=== PATIENT | female | born 1980 | race Caucasian/White ===

== ENCOUNTER 2018-05-28 06:34 | Emergency (ER) | payer BC ==
[2018-05-28] MEDS ORDERED: ASPIRIN 81 MG TABLET, CHEWABLE PO ONE (06:59)
--- NOTE | 2018-05-28 07:01 | ER Document Report ---
ED General - General Mode of Arrival: Ambulatory Information source: Patient TRAVEL OUTSIDE OF THE [place] IN LAST 30 DAYS: No <SG LAMBERT - Last Filed: 05/28/18 09:59> <YA MARTI - Last Filed: 05/28/18 10:02> - General Chief Complaint: Chest Pain Stated Complaint: CHEST PAIN Time Seen by Provider: 05/28/18 06:51 Notes: 37-year-old female who presents to the emergency department today with complaints of a heart racing sensation with associated left-sided chest pain described as a "dull pain". Patient mentions that she is currently in the area because her vqurnt-yr-kns is very sick which has added stress to her life. Patient states when she woke up she took her heart rate which was 98, a few minutes later it was 101 and she began feeling hot so she stepped outside. Patient took it once more when coming back inside and it was 117 and she states she "began to panic" with associated lip tingling. Patient also mentions that she is is on phentermine for weight loss and is taking Advil Cold and Sinus which contains phenylephrine. (SG LAMBERT) Past Medical History - General Information source: Patient - Social History Smoking Status: Never Smoker Cigarette use (# per day): No Frequency of alcohol use: Rare Drug Abuse: None Lives with: Family Family History: Reviewed & Not Pertinent - Past Medical History Cardiac Medical History: Reports: Hx Hypertension Psychiatric Medical History: Reports: Hx Depression Surgical Hx: Negative <SG LAMBERT - Last Filed: 05/28/18 09:59> Review of Systems - Review of Systems Constitutional: No symptoms reported EENT: See HPI, Other - lips tingling Cardiovascular: See HPI, Chest pain, Heart racing Respiratory: No symptoms reported Gastrointestinal: No symptoms reported Genitourinary: No symptoms reported Female Genitourinary: No symptoms reported Musculoskeletal: No symptoms reported Skin: No symptoms reported Hematologic/Lymphatic: No symptoms reported Neurological/Psychological: See HPI, Anxiety -: Yes All other systems reviewed and negative <SG LAMBERT - Last Filed: 05/28/18 09:59> Physical Exam <SG LAMBERT - Last Filed: 05/28/18 09:59> <YA MARTI - Last Filed: 05/28/18 10:02> - Vital signs Vitals: Temp Pulse Resp BP Pulse Ox 98.6 F 100 18 134/89 H 100 05/28/18 06:38 05/28/18 06:38 05/28/18 06:38 05/28/18 06:38 05/28/18 06:38 - Notes Notes: PHYSICAL EXAM GENERAL: Alert, interacts well. No acute distress. HEAD: Normocephalic, atraumatic. EYES: Pupils equal, round, and reactive to light. Extraocular movements intact. Horizontal nystagmus which is baseline for her since . ENT: Oral mucosa moist, tongue midline. NECK: Full range of motion. Supple. Trachea midline. CHEST: Reproducible left sided tenderness with palpation extending from under the breast to the anterior axillary line. LUNGS: Clear to auscultation bilaterally, no wheezes, rales, or rhonchi. No respiratory distress. HEART: Regular rate and rhythm. No murmurs, gallops, or rubs. ABDOMEN: Soft, non-tender. Non-distended. Bowel sounds present in all 4 quadrants. No guarding, rigidity, or rebound. EXTREMITIES: Moves all 4 extremities spontaneously. No edema, radial and dorsalis pedis pulses 2/4 bilaterally. No cyanosis. NEUROLOGICAL: Alert and oriented x3. Normal speech. PSYCH: Mildly anxious. SKIN: Warm, dry, normal turgor. No rashes or lesions noted. (SG LAMBERT) Course - Laboratory Result Diagrams: 05/28/18 07:25 05/28/18 07:25 <SG LAMBERT - Last Filed: 05/28/18 09:59> - Laboratory Result Diagrams: 05/28/18 07:25 05/28/18 07:25 <YA MARTI - Last Filed: 05/28/18 10:02> - Re-evaluation Re-evalutation: 05/28/18 08:21 CBC unremarkable, CMP unremarkable, cardiac enzymes negative, chest x-ray shows no acute process, EKG is nonischemic. Patient is feeling much better, she is on phentermine for weight loss and recently started taking an oral decongestant combination medication including phenylephrine. She is also under a great deal of stress as her cpzbuy-uw-glf's in the hospital and according to the patient her uzghie-ub-pfl is dying right now. Patient is recommended not to take any other stimulant medications in combination with her phentermine. Patient is quite low risk for ACS or pulmonary embolism. Patient will be discharged to home. (YA MARTI) - Vital Signs Vital signs: Temp Pulse Resp BP Pulse Ox 98.6 F 100 14 115/72 100 05/28/18 06:38 05/28/18 06:38 05/28/18 09:01 05/28/18 09:00 05/28/18 09:01 - Laboratory Laboratory results interpreted by me: 05/28/18 07:25 RDW 14.1 H - EKG Interpretation by Me Additional EKG results interpreted by me: 05/28/18 08:21 EKG shows sinus rhythm at a rate of 93, left axis deviation, normal intervals, no ST segment elevations or depressions, there are T wave inversions in lead III and flattening in aVF and V3 per my interpretation. (YA MARTI) Discharge <SG LAMBERT - Last Filed: 05/28/18 09:59> <YA MARTI - Last Filed: 05/28/18 10:02> - Discharge Clinical Impression: Chest pain with low risk for cardiac etiology Condition: Stable Disposition: HOME, SELF-CARE Instructions: Chest Pain of Unclear Cause ([facility]) Scribe Attestation: 05/28/18 10:02 I personally performed the services described in the documentation, reviewed and edited the documentation which was dictated to the scribe in my presence, and it accurately records my words and actions. (YA MARTI) Scribe Documentation - Scribe Written by Wyatt:: Wyatt Ohara, 05/28/2018 [id number] acting as scribe for :: Lisha <SG LAMBERT - Last Filed: 05/28/18 09:59>
--- NOTE | 2018-05-28 07:32 | RADIOLOGY REPORT (SQ) ---
EXAM DESCRIPTION: XR CHEST 1 VIEW COMPLETED DATE/TME: 05/28/2018 06:59 CLINICAL HISTORY: 37 years, Female, left sided chest pain COMPARISON: None. NUMBER OF VIEWS: One TECHNIQUE: AP view of the chest LIMITATIONS: None. FINDINGS: The lungs are clear. The heart is normal in size. There is no pneumothorax or pleural effusion. There is no acute fracture IMPRESSION: No acute cardiopulmonary abnormality 2010 [employer]- All Rights Reserved
[2018-05-28 07:36] LABS: ABSOLUTE EOSINOPHILS # (AUTO) 0.1 10^3/uL (0.0-0.6); ABSOLUTE LYMPHOCYTES (AUTO) 1.8 10^3/uL (0.5-4.7); ABSOLUTE MONOCYTES (AUTO) 0.5 10^3/uL (0.1-1.4); ABSOLUTE NEUT (AUTO) 3.4 10^3/uL (1.7-8.2); BASOPHILS % (AUTO) 0.7 % (0-2); EOSINOPHILS % (AUTO) 1.3 % (0-6); HEMATOCRIT 39.4 % (36.0-47.0); HEMOGLOBIN 13.6 g/dL (12.0-15.5); LYMPHOCYTES % (AUTO) 30.8 % (13-45); MEAN CORPUSCULAR HEMOGLOBIN 30.3 pg (27.0-33.4); MEAN CORPUSCULAR HGB CONC 34.5 g/dL (32.0-36.0); MEAN CORPUSCULAR VOLUME 88 fl (80-97); MONOCYTES % (AUTO) 8.4 % (3-13); PLATELET COUNT 250 10^3/uL (150-450); RED BLOOD COUNT 4.49 10^6/uL (3.72-5.28); RED CELL DISTRIBUTION WIDTH 14.1 % (11.5-14.0); SEGMENTED NEUTROPHILS % (AUTO) 58.8 % (42-78); TOTAL CELLS COUNTED % (AUTO) 100 %; WHITE BLOOD COUNT 5.8 10^3/uL (4.0-10.5)
[2018-05-28 07:54] LABS: ALANINE AMINOTRANSFERASE 21 U/L (9-52); ALBUMIN 4.4 g/dL (3.5-5.0); ALKALINE PHOSPHATASE 61 U/L (38-126); ANION GAP 13 (5-19); ASPARTATE AMINO TRANSFERASE 18 U/L (14-36); BILIRUBIN,DIRECT 0.2 mg/dL (0.0-0.4); BILIRUBIN,TOTAL 0.9 mg/dL (0.2-1.3); BLOOD UREA NITROGEN 13 mg/dL (7-20); CALCIUM 9.1 mg/dL (8.4-10.2); CARBON DIOXIDE 26 mmol/L (22-30); CHLORIDE 104 mmol/L (98-107); CREATINE KINASE 34 U/L (30-135); GLUCOSE 102 mg/dL (75-110); POTASSIUM 4.1 mmol/L (3.6-5.0); SODIUM 142.5 mmol/L (137-145); TOTAL PROTEIN 7.4 g/dL (6.3-8.2)
[2018-05-28 08:08] LABS: CREATINE KINASE MB < 0.22 ng/mL (<4.55); TROPONIN I < 0.012 ng/mL
[2018-05-28 09:13] VITALS: BP 115/72
--- NOTE | 2018-05-28 19:14 | EKG REPORT ---
SEVERITY:- ABNORMAL ECG - SINUS RHYTHM LEFT ATRIAL ABNORMALITY BORDERLINE T ABNORMALITIES, INFERIOR LEADS : Confirmed by: Leela Haq MD 28-May-2018 19:13:37
== END 2018-05-28 09:12 | disposition home or self-care (01) ==
LOC: ER 06:34
DX: R07.9 Chest pain, unspecified (principal); R20.0 Anesthesia of skin; I10 Essential (primary) hypertension
CPT/HCPCS: 36415; 71045; 80053; 82550; 82553; 84484; 85025; 93005; 93010; 99285